=== PATIENT | female | born 1970 | race Asian ===

== ENCOUNTER 2022-05-01 08:34 | Outpatient (CLI) | payer BC, SELFPAY | END 2022-05-01 08:35 | disposition home or self-care (01) | PROVIDERS: PCP Physician Assistant Medical; Visit Provider Physician Assistant Medical | DX: Z00.00 Encounter for general adult medical examination without abnormal findings (principal); E55.9 Vitamin D deficiency, unspecified; Z13.6 Encounter for screening for cardiovascular disorders | CPT/HCPCS: 80053; 80061; 82306 ==

== ENCOUNTER 2022-05-26 14:57 | Outpatient (CLI) | payer BC, SELFPAY ==
--- NOTE | 2022-05-26 15:20 | CRLHL7_ITS ---
For Patients: As a result of the Century Cures Act, medical imaging exams and procedure reports are released immediately into your electronic medical record. You may view this report before your referring provider. If you have questions, please contact your health care provider. BILATERAL SCREENING MAMMOGRAM WITH COMPUTER-AIDED DETECTION TECHNIQUE: CC and MLO views were obtained. These mammographic images have been obtained using full-field digital technique. These mammographic images were interpreted with the benefit of computer-aided detection. COMPARISON FILM: 05/19/21, 05/14/20, 05/21/17. FINDINGS: There are scattered areas of fibroglandular density IMPRESSION: There is no radiographic evidence for malignancy. ASSESSMENT: BI-RADS Category 1: Negative RECOMMENDATION: Routine screening mammogram in 1 year. A lay language report of this examination will be provided to the patient. Liberty Pérez M.D. Diagnostic/Breast Radiologist [email or web address] MARION/pola Transcribed: 2:10 p.kane escalona/Dictated by: Liberty Pérez MD @ 05/29/2022 8:30:00 AM (Electronically Signed)
== END 2022-05-26 14:58 | disposition home or self-care (01) ==
LOC: MAMMO 14:58
PROVIDERS: PCP Physician Assistant Medical; Visit Provider Obstetrics & Gynecology
DX: Z12.31 Encounter for screening mammogram for malignant neoplasm of breast (principal)
CPT/HCPCS: 77063; 77067

== ENCOUNTER 2022-09-07 13:20 | Outpatient (REF) | payer BC, SELFPAY ==
[2022-09-07 14:24] LABS: Glucose* 94 mg/dL (60-115); Iron* 120 ug/dL (37-170)
[2022-09-07 14:26] LABS: Hemoglobin A1C* 5.22 % (0-5.6)
[2022-09-07 14:35] LABS: Percent Iron Saturation 34 % (20-50); Total Iron Binding Capacity 351 ug/dL (265-497)
[2022-09-08 23:02] LABS: Insulin, Fasting 9 uIU/mL (3-25)
== END 2022-09-07 13:21 | disposition home or self-care (01) ==
LOC: NPINS 13:20
PROVIDERS: PCP Physician Assistant Medical
DX: R53.83 Other fatigue (principal); Z13.1 Encounter for screening for diabetes mellitus
CPT/HCPCS: 82728; 82947; 83036; 83525; 83540; 83550

== ENCOUNTER 2023-04-27 08:06 | Outpatient (CLI) | payer BC, SELFPAY | END 2023-04-27 08:07 | disposition home or self-care (01) | LOC: NFLDREF 04-30 06:46 | PROVIDERS: PCP Physician Assistant Medical; Referring Provider Physician Assistant Medical; Visit Provider Physician Assistant Medical | DX: E55.9 Vitamin D deficiency, unspecified (principal); Z13.228 Encounter for screening for other metabolic disorders; Z13.220 Encounter for screening for lipoid disorders; Z13.29 Encounter for screening for other suspected endocrine disorder | CPT/HCPCS: 80053; 80061; 82306; 84443 ==

== ENCOUNTER 2023-06-01 15:05 | Outpatient (CLI) | payer BC, SELFPAY ==
--- NOTE | 2023-06-01 15:20 | MM_ITS ---
Patient: ALAINA MUNGUIA Facility:?[facility] Patient ID:?[id number] Site Patient ID:?[id number]. Site :?[id number] Study:?XRay-Breast Bilateral 3D W/CAD-06/01/2023 3:53:17 PM Ordering Physician:Olive Final Report: BILATERAL SCREENING MAMMOGRAM WITH COMPUTER-AIDED DETECTION AND TOMOSYNTHESIS TECHNIQUE: CC and MLO views were obtained. These mammographic images have been obtained using full-field digital technique. These mammographic images were interpreted with the benefit of computer-aided detection. Breast Tomosynthesis was used in this interpretation. COMPARISON FILM: 05/26/22, 05/19/21, 05/14/20. FINDINGS: There are scattered areas of fibroglandular density. IMPRESSION: There is no radiographic evidence for malignancy. ASSESSMENT: BI-RADS Category 1: Negative RECOMMENDATION: Routine screening mammogram in 1 year. A lay language report of this examination will be provided to the patient. Saul Pierson M.D. Diagnostic Radiologist [email or web address] DSM/sp R& Transcribed: 4:02 p.m. SP/Dictated by: Saul Pierson MD @ 06/04/2023 10:13:00 AM Signed by:?Saul Pierson MD @06/04/2023 9:11:52 PM (Electronic Signature)
== END 2023-06-01 15:06 | disposition home or self-care (01) ==
LOC: MAMMO 15:05
PROVIDERS: PCP Physician Assistant Medical; Visit Provider Physician Assistant Medical
DX: Z12.31 Encounter for screening mammogram for malignant neoplasm of breast (principal)
CPT/HCPCS: 77063; 77067

== ENCOUNTER 2024-06-02 13:12 | Outpatient (CLI) | payer BC, SELFPAY ==
[2024-06-03 00:38] LABS: Chlamydia DNA Amplified* NOT DETECTED (No Detected); GC DNA Amplified* NOT DETECTED (No Detected)
[2024-06-05 00:19] LABS: HPV Source Cervix; HPV, High Risk by TMA Not Detected
== END 2024-06-02 13:13 | disposition home or self-care (01) ==
PROVIDERS: PCP Physician Assistant Medical; Visit Provider Physician Assistant Medical
DX: Z12.4 Encounter for screening for malignant neoplasm of cervix (principal); Z11.3 Encounter for screening for infections with a predominantly sexual mode of transmission; Z11.51 Encounter for screening for human papillomavirus (HPV)
CPT/HCPCS: 87491; 87591; 87624; 87625; 88141; 88142

== ENCOUNTER 2024-06-04 08:14 | Outpatient (CLI) | payer BC, SELFPAY | END 2024-06-04 08:15 | disposition home or self-care (01) | LOC: NFLDREF 06-06 23:47 | PROVIDERS: PCP Physician Assistant Medical; Referring Provider Physician Assistant Medical; Visit Provider Physician Assistant Medical | DX: Z00.01 Encounter for general adult medical examination with abnormal findings (principal); E55.9 Vitamin D deficiency, unspecified; L65.9 Nonscarring hair loss, unspecified; Z13.228 Encounter for screening for other metabolic disorders; Z13.6 Encounter for screening for cardiovascular disorders | CPT/HCPCS: 80053; 80061; 82306; 84443 ==

== ENCOUNTER 2024-12-05 11:04 | Outpatient (CLI) | payer BC, SELFPAY ==
--- NOTE | 2024-12-05 11:30 | CRLHL7_ITS ---
For Patients: As a result of the Century Cures Act, medical imaging exams and procedure reports are released immediately into your electronic medical record. You may view this report before your referring provider. If you have questions, please contact your health care provider. INDICATION: BILATERAL SCREENING MAMMOGRAM, ASYMPTOMATIC 54 Y/O FEMALE COMPARISON: 06/01/2023, 05/26/2022, 05/19/2021 TECHNIQUE: Digital mammogram in CC and MLO projections including computer-aided detection (CAD) and tomosynthesis. BREAST COMPOSITION: There are scattered areas of fibroglandular density. FINDINGS: No suspicious findings. ASSESSMENT: BI-RADS 1 Negative RECOMMENDATION: Annual screening mammogram. A lay language report of this examination will be provided to the patient. Dictated by: Saul Pierson MD @ 12/05/2024 11:49:22 (Electronically Signed)
== END 2024-12-05 11:05 | disposition home or self-care (01) ==
LOC: MAMMO 11:04
PROVIDERS: PCP Physician Assistant Medical; Visit Provider Physician Assistant Medical
DX: Z12.31 Encounter for screening mammogram for malignant neoplasm of breast (principal)
CPT/HCPCS: 77063; 77067